=== PATIENT | male | born 1970 | race Caucasian/White ===

== ENCOUNTER 2023-08-05 13:44 | Outpatient (CLI) | payer OTHER | END 2023-08-05 13:45 | disposition home or self-care (01) | LOC: ULT 13:44 | PROVIDERS: ATTEND Chiropractor | DX: Z48.812 Encounter for surgical aftercare following surgery on the circulatory system (principal); E11.9 Type 2 diabetes mellitus without complications; I34.0 Nonrheumatic mitral (valve) insufficiency; Z95.5 Presence of coronary angioplasty implant and graft | CPT/HCPCS: 36415; 80053; 81001; 93306 ==